=== PATIENT | male | born 2000 | race Two or more races ===

== ENCOUNTER 2018-08-24 17:47 | Emergency (ER) | payer BC ==
[~2018-08-24] VITALS: Ht 177.8 cm; Wt 91.6 kg
[2018-08-24 17:52] VITALS: BP 151/86
== END 2018-08-24 19:03 | disposition home or self-care (01) ==
LOC: ED 18:57
DX: S02.32XA Fracture of orbital floor, left side, initial encounter for closed fracture (principal); Y04.0XXA Assault by unarmed brawl or fight, initial encounter; Y93.89 Activity, other specified; Y92.89 Other specified places as the place of occurrence of the external cause; Y99.8 Other external cause status
CPT/HCPCS: 70486; 99284